=== PATIENT | female | born 1975 | race Two or more races ===

== ENCOUNTER → 2018-03-03 | Outpatient (CLI) | payer BC ==
[~2018-03-03] MED LIST: CELE200C PO; LOSA25TA5 PO
[2018-03-03 15:59] LABS: BASOPHILS # (AUTO) 0.07 x10^3/uL (0-0.1); BASOPHILS % (AUTO) 1 % (0-1); EOSINOPHILS # (AUTO) 0.27 x10^3/uL (0-0.4); EOSINOPHILS % (AUTO) 3 % (1-7); LYMPHOCYTES # (AUTO) 2.09 x10^3/uL (1-3.4); LYMPHOCYTES % (AUTO) 21 % (22-44); MD NO; MEAN CORPUSCULAR HGB CONC 33.4 g/dL (32.4-35.8); MEAN CORPUSCULAR VOLUME 86.8 fL (80-100); MEAN PLATELET VOLUME 6.8 fL (7.4-10.4); MONOCYTES # (AUTO) 0.87 x10^3/uL (0.2-0.8); MONOCYTES % (AUTO) 9 % (2-9); NEUTROPHILS % (AUTO) 68 % (42-75); PLATELET COUNT 350 x10^3/uL (130-400); RED BLOOD COUNT 4.52 x10^6/uL (3.82-5.3); RED CELL DISTRIBUTION WIDTH 13.4 % (9.6-15.2)
[2018-03-03 16:07] LABS: ALBUMIN 3.5 g/dL (3.4-5.0); ANION GAP 6 mmol/L (5-15); CALCIUM 8.4 mg/dL (8.5-10.1); CHLORIDE 108 mmol/L (98-107)
[2018-03-03 16:13] LABS: ALANINE AMINOTRANSFERASE 31 U/L (12-78); ALKALINE PHOSPHATASE 98 U/L (45-117); BILIRUBIN,TOTAL 0.4 mg/dL (0.2-1.0); CREATININE 0.55 mg/dL (0.55-1.02); TOTAL PROTEIN 7.3 g/dL (6.4-8.2)
== END | disposition home or self-care (01) ==
LOC: STAR 15:04
PROVIDERS: ATTEND Obstetrics & Gynecology Female Pelvic Medicine and Reconstructive Surgery
DX: Z01.818 Encounter for other preprocedural examination (principal)
CPT/HCPCS: 36415; 80053; 84703; 85025

== ENCOUNTER 2018-03-08 12:03 | Day surgery (SDC) | payer BC ==
[~2018-03-08] VITALS: Ht 157.5 cm; Wt 67.4 kg
[2018-03-08] MEDS ORDERED: LACTATED RINGERS 1,000 ML IV SCH ×2 (12:16→14:58)
[2018-03-08] MEDS ORDERED: ACETAMINOPHEN 500 MG TABLET PO ONE (12:30)
[2018-03-08] MEDS ORDERED: SCOPOLAMINE PATCH, 1.5MG PATCH.TD72 TD ONE (12:30)
[2018-03-08] MEDS ORDERED: ONDANSETRON ODT 8 MG PO ONE (12:30)
[2018-03-08] MEDS ORDERED: GABAPENTIN 300 MG CAPSULE PO ONE (12:30)
[2018-03-08 12:37] VITALS: BP 128/91
[2018-03-08 13:01] LABS: HCG UR SG 1.022 (1.003-1.030)
[2018-03-08] MEDS ORDERED: FENTANYL PF 100 MCG/2ML ONE ×2 (13:37→15:13)
[2018-03-08] MEDS ORDERED: MIDAZOLAM 1 MG/ML, 2ML ONE (13:38)
[2018-03-08] MEDS ORDERED: BUPIVACAINE/PF 0.25% ONE (13:49)
[2018-03-08] MEDS ORDERED: METOCLOPRAMIDE 5 MG/ML, 2ML ONE (14:02)
[2018-03-08] MEDS ORDERED: LIDOCAINE-MPF 2% ,5ML ONE (14:02)
[2018-03-08] MEDS ORDERED: ROCURONIUM 10 MG/ML,10ML ONE (14:02)
[2018-03-08] MEDS ORDERED: KETOROLAC 30 MG/1 ML ONE (14:02)
[2018-03-08] MEDS ORDERED: PROPOFOL 50 ML ONE (14:17)
[2018-03-08] MEDS ORDERED: CEFAZOLIN 1,000 MG ONE (14:20)
[2018-03-08] MEDS ORDERED: ONDANSETRON 2MG/ML, 2ML ONE (14:20)
[2018-03-08] MEDS ORDERED: LIDOCAINE GEL 2%, 5ML ONE (14:20)
[2018-03-08] MEDS ORDERED: DEXAMETHASONE 4 MG/ML, 1ML ONE (14:20)
[2018-03-08] MEDS ORDERED: NEOSTIGMINE 1 MG/ML, 10ML ONE (14:20)
[2018-03-08] MEDS ORDERED: PROPOFOL 10 MG/ML, 20ML ONE (14:20)
[2018-03-08] MEDS ORDERED: GLYCOPYRROLATE 0.2MG/1ML, 5ML ONE (14:20)
[2018-03-08] MEDS ORDERED: SUCCINYLCHOLINE 20 MG/ML, 10ML ONE (14:20)
[2018-03-08] MEDS ORDERED: LORazepam 2 MG/ML, 1ML IVPush PRN (15:00)
[2018-03-08] MEDS ORDERED: PROMETHAZINE 25 MG SUPP PR ONE (15:00)
[2018-03-08] MEDS ORDERED: IBUPROFEN 600 MG TABLET PO PRN (15:00)
[2018-03-08] MEDS ORDERED: MIDAZOLAM 1 MG/ML, 2ML IV PRN (15:00)
[2018-03-08] MEDS ORDERED: DIAZEPAM 5 MG/ML, 2ML IVPush PRN (15:00)
[2018-03-08] MEDS ORDERED: EPHEDRINE 50 MG/ML, 1ML IM PRN (15:00)
[2018-03-08] MEDS ORDERED: DIPHENHYDRAMINE 50 MG/ML, 1ML IVPush PRN (15:00)
[2018-03-08] MEDS ORDERED: ONDANSETRON 2MG/ML, 2ML IVPush PRN (15:00)
[2018-03-08] MEDS ORDERED: PROMETHAZINE 25 MG/ML, 1ML IV PRN (15:00)
[2018-03-08] MEDS ORDERED: ALBUTEROL/IPRATROPIUM 2.5MG/0.5MG, 3 ML NPPB PRN (15:00)
[2018-03-08] MEDS ORDERED: ONDANSETRON ODT 8 MG PO PRN (15:00)
[2018-03-08] MEDS ORDERED: MORPHINE SULFATE 4 MG/ML, 1ML IVPush PRN (15:00)
[2018-03-08] MEDS ORDERED: HYDROmorphone 1 MG/ML, 1ML IV PRN (15:00)
[2018-03-08] MEDS ORDERED: LABETALOL 5MG/ML, 20ML IV PRN (15:00)
[2018-03-08] MEDS ORDERED: OXYcodone/APAP 5/325MG TABLET PO PRN (15:00)
[2018-03-08] MEDS ORDERED: MEPERIDINE/PF 25MG/0.5ML IVPush PRN (15:00)
[2018-03-08] MEDS ORDERED: hydrALAzine 20 MG/ML, 1ML IV PRN (15:00)
[2018-03-08] MEDS ORDERED: OXYcodone 5 MG/5 ML ORAL.SOL UDC ONE (15:13)
[2018-03-08] MEDS: OXYcodone 5 MG/5 ML ORAL.SOL UDC PO PRN ×2 (15:15→16:20)
[2018-03-08] MEDS: FENTANYL PF 100 MCG/2ML IV PRN ×3 (15:25→15:40)
== END 2018-03-08 17:48 | disposition home or self-care (01) ==
LOC: OUT 12:03
PROVIDERS: ATTEND Obstetrics & Gynecology Female Pelvic Medicine and Reconstructive Surgery
DX: Z30.2 Encounter for sterilization (principal); N73.6 Female pelvic peritoneal adhesions (postinfective); F17.210 Nicotine dependence, cigarettes, uncomplicated; I10 Essential (primary) hypertension
CPT/HCPCS: 58670; 81025; J0330; J0690; J1100; J1885; J2250; J2405; J2704; J2710; J2765; J3010; J3490; J7120; Q0162